=== PATIENT | male | born 1965 | race African-American/Black ===

== ENCOUNTER 2021-12-10 09:27 | Outpatient (CLI) | payer BC, OTHER | END 2021-12-10 09:28 | disposition home or self-care (01) | LOC: TBSIIMAG 09:27 | PROVIDERS: ATTEND Registered Nurse | DX: M50.121 Cervical disc disorder at C4-C5 level with radiculopathy (principal) | CPT/HCPCS: 72141 ==

== ENCOUNTER 2023-08-10 05:52 | Day surgery (SDC) | payer BC, OTHER ==
[2023-08-06 11:40] VITALS: BMI 39.5
[2023-08-10] MEDS ORDERED: PROPOFOL 40 ML ONE (07:05)
[2023-08-10] MEDS ORDERED: Midazolam HCl 2 mg/2 ml Vial ONE (07:05)
[2023-08-10] MEDS ORDERED: Lidocaine 1% PF 5 ML VIAL ONE (07:12)
[2023-08-10] MEDS ORDERED: PROPOFOL 20 ML ONE ×4 (07:12→08:19)
[2023-08-10] MEDS ORDERED: PHENYLEPHRINE-NS 100 MCG/ML 10 ML SYRINGE ONE (08:37)
== END 2023-08-10 09:22 | disposition home or self-care (01) ==
LOC: SDC 05:52
PROVIDERS: ATTEND Internal Medicine Gastroenterology
PROC: 0DBP8ZZ Excision of Rectum, Via Natural or Artificial Opening Endoscopic (ICD-10-PCS; principal; 2023-08-10)
PROC: 0DBL8ZZ Excision of Transverse Colon, Via Natural or Artificial Opening Endoscopic (ICD-10-PCS; principal; 2023-08-10)
DX: Z12.11 Encounter for screening for malignant neoplasm of colon (principal); K62.1 Rectal polyp; K57.30 Diverticulosis of large intestine without perforation or abscess without bleeding; K64.9 Unspecified hemorrhoids; F17.210 Nicotine dependence, cigarettes, uncomplicated; E66.9 Obesity, unspecified; E11.9 Type 2 diabetes mellitus without complications; E78.5 Hyperlipidemia, unspecified; I10 Essential (primary) hypertension; E03.9 Hypothyroidism, unspecified; E29.1 Testicular hypofunction; Z68.39 Body mass index [BMI] 39.0-39.9, adult
CPT/HCPCS: 88305; J2250; J2704